=== PATIENT | female | born 2000 | race African-American/Black ===

== ENCOUNTER 2022-05-31 09:45 | Emergency (ER) | payer MEDICAID, SELFPAY ==
[2022-05-31 11:43] LABS: Bilirubin Neg (Negative); Blood, Urine 50 (Negative); Glucose, Urine (Dipstick) Normal (Negative); Ketone, Urine Negative (Negative); Leukocyte 100 (Negative); Nitrite Negative (Negative); Protein, Urine (Dipstick) Negative (Neg-Trace); Urobilinogen Normal mg/dL (Less than 2)
[2022-05-31 11:47] LABS: Pregnancy Test - Urine (BHCG) Negative (Negative); Pregu Control Background? CLEAR/WHITE (CLR/WHITE); Pregu Control Bar Appear? YES (CONTROL BAR)
[2022-05-31 11:59] LABS: Clarity Slightly Cloudy (Clear)
[2022-05-31 12:00] LABS: RBC/HPF 21-50 HPF (0-3)
[2022-05-31 12:02] LABS: Bacteria/HPF 1+ HPF (None Seen)
[2022-05-31] MEDS ORDERED: Ketorolac Tromethamine 30 MG/ML VIAL ONE (12:06)
[2022-05-31] MEDS ORDERED: Cyclobenzaprine 10 MG TAB ONE (13:04)
== END 2022-05-31 13:30 | disposition home or self-care (01) ==
LOC: CSHERS 09:45
DX: N39.0 Urinary tract infection, site not specified (principal); M62.830 Muscle spasm of back
CPT/HCPCS: 71046; 74176; 81003; 81015; 81025; 96372; J1885